=== PATIENT | female | born 1970 | race Caucasian/White ===

== ENCOUNTER 2017-01-07 09:38 | Emergency (ER) | payer MEDICAID ==
[~2017-01-07] VITALS: Ht 157.5 cm; Wt 66.3 kg
[2017-01-07 09:41] VITALS: BP 153/90
[2017-01-07] MEDS ORDERED: EYE DROPS (09:56)
== END 2017-01-07 10:30 | disposition home or self-care (01) ==
LOC: ED 10:24
DX: S20.369A Insect bite (nonvenomous) of unspecified front wall of thorax, initial encounter (principal); S30.860A Insect bite (nonvenomous) of lower back and pelvis, initial encounter; S80.862A Insect bite (nonvenomous), left lower leg, initial encounter; S80.861A Insect bite (nonvenomous), right lower leg, initial encounter; S40.862A Insect bite (nonvenomous) of left upper arm, initial encounter; S40.861A Insect bite (nonvenomous) of right upper arm, initial encounter; S30.861A Insect bite (nonvenomous) of abdominal wall, initial encounter; I50.9 Heart failure, unspecified; W57.XXXA Bitten or stung by nonvenomous insect and other nonvenomous arthropods, initial encounter; Y93.89 Activity, other specified; Y92.89 Other specified places as the place of occurrence of the external cause; Y99.8 Other external cause status
CPT/HCPCS: 99283

== ENCOUNTER 2017-02-22 21:23 | Emergency (ER) | payer MEDICAID ==
[~2017-02-22] VITALS: Ht 157.5 cm; Wt 63.5 kg
[~2017-02-22 21:23] MED LIST: EYE DROPS
[2017-02-23] MEDS ORDERED: ONDANSETRON 2MG/ML, 2ML ONE (01:22)
[2017-02-23] MEDS ORDERED: HYDROmorphone 1 MG/ML, 1ML ONE ×2 (01:22→01:33)
[2017-02-23] MEDS ORDERED: KETOROLAC 30 MG/1 ML ONE (01:22)
[2017-02-23] MEDS ORDERED: PROCHLORPERAZINE 5 MG/ML, 2ML ONE (01:22)
[2017-02-23] MEDS ORDERED: HYDROmorphone 1 MG/ML, 1ML IVPush PRN (01:30)
[2017-02-23] MEDS ORDERED: ONDANSETRON 2MG/ML, 2ML IVPush ONE (01:30)
[2017-02-23] MEDS ORDERED: KETOROLAC 30 MG/1 ML IVPush ONE (01:30)
[2017-02-23] MEDS ORDERED: PROCHLORPERAZINE 5 MG/ML, 2ML IVPush ONE (01:30)
[2017-02-23] MEDS ORDERED: SODIUM CHLORIDE 0.9% 1,000ML IVBOLUS ONE (01:30)
[2017-02-23] MEDS ORDERED: SODIUM CHLORIDE FLUSH 10ML SYR IVF ONE (01:30)
[2017-02-23 01:33] LABS: HEMATOCRIT 36.5 % (34.6-47.8); HEMOGLOBIN 12.4 g/dL (11.7-16.4); WHITE BLOOD COUNT 5.4 x10^3/uL (3.4-10)
[2017-02-23 01:39] LABS: BLOOD UREA NITROGEN 13 mg/dL (7-18)
[2017-02-23 03:22] LABS: GLUCOSE, CSF 58 mg/dL (40-80)
[2017-02-23 04:24] VITALS: BP 105/74
== END 2017-02-23 04:26 | disposition home or self-care (01) ==
LOC: ED 23:59
DX: G43.C0 Periodic headache syndromes in child or adult, not intractable (principal); I50.9 Heart failure, unspecified
CPT/HCPCS: 36415; 62270; 70450; 80048; 80307; 82040; 82945; 84157; 85025; 87070; 87205; 89051; 93005; 96374; 96375; 99285; J0780; J1170; J1885; J2405; J7030; G0479

== ENCOUNTER 2018-01-07 10:31 | Emergency (ER) | payer MEDICAID ==
[~2018-01-07] VITALS: Ht 154.9 cm; Wt 62.6 kg
[2018-01-07 10:52] VITALS: BP 104/48
[2018-01-07] MEDS ORDERED: LISI2.5T PO (11:11)
[2018-01-07] MEDS ORDERED: CARV12.52 PO (11:11)
[2018-01-07] MEDS ORDERED: ALBU8.5H8 INH (11:11)
[2018-01-07] MEDS ORDERED: HYDROcodone/APAP 5/325 TABLET ONE (11:36)
[2018-01-07] MEDS ORDERED: HYDROcodone/APAP 5/325 TABLET PO ONE (12:00)
== END 2018-01-07 12:39 | disposition home or self-care (01) ==
LOC: ED 12:33
DX: G89.11 Acute pain due to trauma (principal); M54.2 Cervicalgia; I50.9 Heart failure, unspecified; F17.200 Nicotine dependence, unspecified, uncomplicated; X58.XXXA Exposure to other specified factors, initial encounter; Y93.89 Activity, other specified; Y92.89 Other specified places as the place of occurrence of the external cause; Y99.8 Other external cause status
CPT/HCPCS: 99282

== ENCOUNTER 2018-06-12 07:24 | Emergency (ER) | payer MEDICAID ==
[~2018-06-12] VITALS: Ht 154.9 cm; Wt 60.3 kg
[~2018-06-12 07:24] MED LIST changes: +ALBU8.5H8 INH; +CARV12.52 PO; +LISI2.5T PO
[2018-06-12] MEDS ORDERED: ASPIRIN 81 MG TABLET CHEW PO ONE (08:00)
[2018-06-12] MEDS ORDERED: ASPIRIN 81 MG TABLET CHEW ONE (08:05)
[2018-06-12 08:17] LABS: BASOPHILS # (AUTO) 0.02 x10^3/uL (0-0.1); BASOPHILS % (AUTO) 0 % (0-1); EOSINOPHILS # (AUTO) 0.09 x10^3/uL (0-0.4); EOSINOPHILS % (AUTO) 1 % (1-7); LYMPHOCYTES # (AUTO) 2.24 x10^3/uL (1-3.4); LYMPHOCYTES % (AUTO) 31 % (22-44); MD NO; MEAN CORPUSCULAR HEMOGLOBIN 28.7 pg (27.0-34.8); MEAN CORPUSCULAR HGB CONC 33.2 g/dL (32.4-35.8); MEAN CORPUSCULAR VOLUME 86.4 fL (80-100); MEAN PLATELET VOLUME 7.1 fL (7.4-10.4); MONOCYTES # (AUTO) 0.55 x10^3/uL (0.2-0.8); MONOCYTES % (AUTO) 8 % (2-9); NEUTROPHILS # (AUTO) 4.24 x10^3/uL (1.8-6.8); NEUTROPHILS % (AUTO) 59 % (42-75); PLATELET COUNT 292 x10^3/uL (130-400); RED BLOOD COUNT 4.85 x10^6/uL (3.82-5.3); RED CELL DISTRIBUTION WIDTH 13.5 % (9.6-15.2)
[2018-06-12 08:20] LABS: ALBUMIN 3.5 g/dL (3.4-5.0); ANION GAP 6 mmol/L (5-15); CALCIUM 8.3 mg/dL (8.5-10.1); CHLORIDE 112 mmol/L (98-107)
[2018-06-12 08:25] LABS: CREATININE 0.65 mg/dL (0.55-1.02); TROPONIN I < 0.015 ng/mL (0.000-0.045)
[2018-06-12 08:38] VITALS: BP 114/64
[2018-06-12] MEDS ORDERED: KETOROLAC 30 MG/1 ML ONE (08:49)
[2018-06-12] MEDS ORDERED: KETOROLAC 30 MG/1 ML IM ONE (09:00)
--- NOTE | 2018-06-12 09:29 | NUR ---
STATES SOME IMPROVEMENT SINCE MEDICATED. ENCOURAGED TO TAKE IBUPROFEN PRESCRIBED. GIVEN D/C. AMBULATED TO DISCHARGE DESK, STEADY GAIT
== END 2018-06-12 09:32 | disposition home or self-care (01) ==
LOC: ED 09:26
DX: M94.0 Chondrocostal junction syndrome [Tietze] (principal); I50.9 Heart failure, unspecified
CPT/HCPCS: 36415; 71046; 80048; 82040; 83880; 84484; 85025; 93005; 96372; 99284; J1885